=== PATIENT | female | born 1955 | race Caucasian/White ===

== ENCOUNTER 2019-12-25 08:11 | Emergency (ER) | payer OTHER ==
[~2019-12-25] VITALS: Ht 162.6 cm; Wt 72.6 kg
[2019-12-25 08:14] VITALS: BP 180/96; Ht 162.6 cm; Wt 72.6 kg
== END 2019-12-25 08:26 | disposition other institution (70) ==
LOC: ED 08:11
DX: Z02.89 Encounter for other administrative examinations (principal)

== ENCOUNTER 2019-12-26 20:24 | Emergency (ER) | payer BC ==
[~2019-12-26] VITALS: Ht 162.6 cm; Wt 74.8 kg
[2019-12-26 20:26] VITALS: BP 192/83; Ht 162.6 cm; Wt 74.8 kg
== END 2019-12-26 22:36 | disposition left against medical advice (07) ==
LOC: ED 20:24
DX: Z53.21 Procedure and treatment not carried out due to patient leaving prior to being seen by health care provider (principal)